=== PATIENT | female | born 1990 | race African-American/Black ===

== ENCOUNTER 2019-06-27 19:09 | Emergency (ER) | payer SELFPAY ==
[~2019-06-27] VITALS: Ht 157.5 cm; Wt 92.1 kg
[2019-06-27 19:41] VITALS: BP 119/68
--- NOTE | 2019-06-27 20:15 | NUR ---
CALLED IN [facility], NO RESPONSE
--- NOTE | 2019-06-27 20:39 | NUR ---
NOT IN [facility]
== END 2019-06-27 20:40 | disposition home or self-care (01) ==
LOC: ER 19:12
DX: R21 Rash and other nonspecific skin eruption (principal); Z53.21 Procedure and treatment not carried out due to patient leaving prior to being seen by health care provider

== ENCOUNTER 2021-02-04 06:59 | Emergency (ER) | payer OTHER ==
[~2021-02-04] VITALS: Ht 154.9 cm; Wt 96.6 kg
[2021-02-04] MEDS ORDERED: FAMOTIDINE (20 MG) 20 MG TABLET ONE (07:13)
[2021-02-04] MEDS ORDERED: predniSONE 20 MG TABLET ONE (07:13)
[2021-02-04] MEDS ORDERED: diphenhydrAMINE HCL 50 MG CAPSULE ONE (07:13)
--- NOTE | 2021-02-04 07:15 | NUR ---
Patient came in to the er c/o allergic reaction from eye cream, +facial swelling, denies sob, bryan taken@5am. On room air, breathing evenly and unlabored. kept comfortable, will continue to monitor accordingly.
[2021-02-04] MEDS: predniSONE 10 MG TABLET PO ONE (07:17)
[2021-02-04] MEDS: diphenhydrAMINE HCL 50 MG CAPSULE PO ONE (07:17)
[2021-02-04] MEDS: FAMOTIDINE (20 MG) 20 MG TABLET PO ONE (07:17)
[2021-02-04] MEDS ORDERED: FAMO-131 PO (07:30)
[2021-02-04] MEDS ORDERED: PRED50TA PO (07:30)
--- NOTE | 2021-02-04 07:39 | NUR ---
Patient discharged to home in stable condition. Written and verbal after care instructions given. Patient verbalizes understanding of instruction.
[2021-02-04 07:40] VITALS: BP 139/87
== END 2021-02-04 07:40 | disposition home or self-care (01) ==
LOC: ER 07:02
DX: L23.9 Allergic contact dermatitis, unspecified cause (principal); Z79.899 Other long term (current) drug therapy
CPT/HCPCS: 99284; J7512; Q0163

== ENCOUNTER 2023-07-02 15:02 | Emergency (ER) | payer BC, OTHER ==
[~2023-07-02] VITALS: Ht 157.5 cm; Wt 89.4 kg
[~2023-07-02 15:02] MED LIST: FAMO-131 PO; PRED50TA PO
[2023-07-02] MEDS ORDERED: ACETAMINOPHEN ES 500 MG TABLET PO ONE (16:00)
[2023-07-02] MEDS ORDERED: ACETAMINOPHEN ES 500 MG TABLET ONE (16:03)
[2023-07-02 16:33] LABS: APPEARANCE,URINE SLIGHTLY CLOUDY (CLEAR); BILIRUBIN,URINE NEGATIVE (NEGATIVE); BLOOD, URINE NEGATIVE Ery/uL (NEGATIVE); COLOR,URINE YELLOW (YELLOW); KETONES,URINE 1+ mg/dL (NEGATIVE); LEUKOCYTE ESTERASE ,URINE NEGATIVE (NEGATIVE); NITRITE, URINE NEGATIVE (NEGATIVE); PH,URINE 7.5 (5.0-8.0); PROTEIN,URINE NEGATIVE (NEGATIVE); UGLUCOSE NEGATIVE (NEGATIVE)
[2023-07-02 17:03] LABS: PREGNANCY TEST URINE QUAL NEGATIVE (NEGATIVE)
[2023-07-02 17:05] LABS: ADD URINE CULTURE NO; BACTERIA,URINE 1+ /HPF (None Seen); MUCUS,URINE Few /LPF (None Seen); RBC,URINE 0-2 /HPF (0-2); SQUAMOUS EPITHELIAL CELL,UR 21-50 /HPF (None Seen); WBC,URINE 0-2 /HPF (0-3)
[2023-07-02 18:53] VITALS: BP 128/70; TEMP 98.3; O2SAT 99
== END 2023-07-02 18:55 | disposition home or self-care (01) ==
LOC: ER 15:05
DX: S30.811A Abrasion of abdominal wall, initial encounter (principal); M25.561 Pain in right knee; M25.562 Pain in left knee; M25.551 Pain in right hip; V03.99XA Pedestrian with other conveyance injured in collision with car, pick-up truck or van, unspecified whether traffic or nontraffic accident, initial encounter; Y93.89 Activity, other specified; Y92.89 Other specified places as the place of occurrence of the external cause; Y99.8 Other external cause status
CPT/HCPCS: 72070-TC; 73030-TC; 73502; 73564-TC; 81001; 84703-TC